=== PATIENT | male | born 1970 | race African-American/Black ===

== ENCOUNTER 2019-09-20 11:28 | Emergency (ER) | payer OTHER ==
[~2019-09-20] VITALS: Ht 182.9 cm; Wt 93.1 kg
[2019-09-20 11:31] VITALS: BP 123/76
[2019-09-20] MEDS ORDERED: HYDROmorphone 2 MG/ML, 1ML IM ONE (12:00)
[2019-09-20] MEDS ORDERED: KETOROLAC 30 MG/1 ML IM ONE (12:00)
[2019-09-20] MEDS ORDERED: LIDOCAINE 1%-EPI 1:100K, 20ML INFIL ONE (12:00)
[2019-09-20] MEDS ORDERED: KETOROLAC 30 MG/1 ML ONE (12:09)
[2019-09-20] MEDS ORDERED: HYDROmorphone 1 MG/ML, 1ML VIAL ONE (12:10)
[2019-09-20] MEDS ORDERED: LIDOCAINE 1%-EPI 1:100K, 20ML ONE (12:33)
--- NOTE | 2019-09-20 13:18 | NUR ---
PT HAS CO OF INGROWN HAIRS IN [place] ARE[place]. I&D SET UP READY. RN ASSIST PA FOR I&D. PT MEDICATED FOR PAIN PRIOR. PT TOLERATED PROCEDURE
--- NOTE | 2019-09-20 13:25 | NUR ---
DPatient/Caregiver given discharge instructions and they have confirmed that they understand the instructions. Patient ambulatory with steady gait.
== END 2019-09-20 13:38 | disposition home or self-care (01) ==
LOC: ED 13:31
DX: L02.31 Cutaneous abscess of buttock (principal)
CPT/HCPCS: 46050; 96372; 99284; J1170; J1885

== ENCOUNTER 2019-09-25 04:25 | Emergency (ER) ==
[~2019-09-25] VITALS: Ht 182.9 cm; Wt 96.3 kg
--- NOTE | 2019-09-25 04:40 | NUR ---
PT REPORTS NECK PAIN THAT HAS GOTTEN WORSE IN THE LAST X3 DAYS, REPORTS PAIN SHOOTS DOWN HIS LEFT ARM IF HE BREATHES DEEPLY OR TURNS HIS HEAD. PT REPORTS BEING UNABLE TO ROTATE HEAD, DENIES TRAUMA.
[2019-09-25] MEDS ORDERED: DIAZEPAM 5 MG TABLET ONE (05:40)
[2019-09-25] MEDS ORDERED: KETOROLAC 30 MG/1 ML ONE (05:40)
--- NOTE | 2019-09-25 05:45 | NUR ---
PT MEDICATED PER MAR. PT TO CT
[2019-09-25] MEDS ORDERED: DIAZEPAM 5 MG TABLET PO ONE (06:00)
[2019-09-25] MEDS ORDERED: KETOROLAC 30 MG/1 ML IM ONE (06:00)
--- NOTE | 2019-09-25 06:35 | NUR ---
PT SLEEPING ON GURNEY WITH RELAXED BODY POSITION. MONITORING IN PLACE. CALL LIGHT WITHIN REACH. PT PROVIDED BLANKET.
--- NOTE | 2019-09-25 06:50 | NUR ---
RECEIVED BEDSIDE REPORT FROM DEREK SIMS. PT RESTING ON GURNEY PRONE POSITION. PT STATES HE'S HAD NECK AND BACK PAIN FOR A WEEK AND GOT WORSE IN THE LAST DAY. VSS. NADN. NO NEEDS REQUESTED AT THIS TIME. PT ALREADY SNORING IN PRONE POSITION.
[2019-09-25 06:51] VITALS: BP 120/89
--- NOTE | 2019-09-25 09:23 | NUR ---
Patient/Caregiver given discharge instructions and they have confirmed that they understand the instructions. Patient ambulatory with steady gait. PT LEFT WITH ALL PESONAL BELONGINGS.
== END 2019-09-25 09:24 | disposition home or self-care (01) ==
LOC: ED 07:13
DX: M54.12 Radiculopathy, cervical region (principal); G24.3 Spasmodic torticollis
CPT/HCPCS: 71046; 72125; 96372; 99284; J1885

== ENCOUNTER 2019-10-21 10:47 | Inpatient (IN) | payer SELFPAY ==
[~2019-10-21] VITALS: Ht 182.9 cm; Wt 91.0 kg
[2019-10-21] MEDS ORDERED: ONDANSETRON 2MG/ML, 2ML IVPush ONE (11:30)
[2019-10-21] MEDS ORDERED: CLINDAMYCIN PMX 900MG/50ML 50 ML IV ONE (11:30)
[2019-10-21] MEDS ORDERED: morphine SULFATE 10 MG/ML, 1ML IVPush ONE (11:30)
[2019-10-21 11:51] LABS: BASOPHILS # (AUTO) 0.03 x10^3/uL (0-0.1); BASOPHILS % (AUTO) 0 % (0-1); EOSINOPHILS # (AUTO) 0.13 x10^3/uL (0-0.4); EOSINOPHILS % (AUTO) 1 % (1-7); LYMPHOCYTES # (AUTO) 1.47 x10^3/uL (1-3.4); LYMPHOCYTES % (AUTO) 13 % (22-44); MD NO; MEAN CORPUSCULAR HEMOGLOBIN 27.3 pg (27.5-34.5); MEAN CORPUSCULAR HGB CONC 32.7 g/dL (33.2-36.2); MEAN CORPUSCULAR VOLUME 83.3 fL (81-97); MEAN PLATELET VOLUME 8.6 fL (7.4-10.4); MONOCYTES # (AUTO) 1.02 x10^3/uL (0.2-0.8); MONOCYTES % (AUTO) 9 % (2-9); NEUTROPHILS # (AUTO) 8.95 x10^3/uL (1.8-6.8); NEUTROPHILS % (AUTO) 77 % (42-75); PLATELET COUNT 241 x10^3/uL (130-400); RED BLOOD COUNT 5.81 x10^6/uL (4.38-5.82); RED CELL DISTRIBUTION WIDTH 14.5 % (9.4-14.8)
[2019-10-21] MEDS ORDERED: ONDANSETRON 2MG/ML, 2ML ONE ×2 (11:57→17:59)
[2019-10-21] MEDS ORDERED: MORPHINE SULFATE 4 MG/ML, 1ML ONE ×2 (11:58→12:48)
[2019-10-21] MEDS ORDERED: CLINDAMYCIN PMX 900MG/50ML 50 ML ONE (11:58)
[2019-10-21 12:00] LABS: ANION GAP 9 mmol/L (5-15); CALCIUM 8.7 mg/dL (8.5-10.1); CHLORIDE 103 mmol/L (98-107); CREATININE 1.16 mg/dL (0.7-1.3)
--- NOTE | 2019-10-21 12:23 | NUR ---
PT TO CT NOW. PT MEDICATED PER ORDER.
[2019-10-21] MEDS ORDERED: OMNIPAQUE 350 MG/ML, 100ML BOTTLE ONE (12:39)
[2019-10-21] MEDS ORDERED: MORPHINE SULFATE 4 MG/ML, 1ML IVPush PRN ×2 (13:00→14:00)
[2019-10-21] MEDS ORDERED: SODIUM CHLORIDE 0.9% 1,000ML IVBOLUS ONE (13:00)
[2019-10-21] MEDS ORDERED: D5%-0.45% NACL 1,000 ML IV ONE (13:42)
[2019-10-21] MEDS ORDERED: ONDANSETRON 2MG/ML, 2ML IVPush PRN (14:00)
[2019-10-21] MEDS ORDERED: BUPIVACAINE/PF 0.5% ONE (15:41)
[2019-10-21] MEDS ORDERED: EPINEPHRINE 1 MG/ML, 1ML ONE (15:41)
[2019-10-21 16:45] VITALS: BP 126/83
[2019-10-21] MEDS ORDERED: FENTANYL PF 250 MCG/5ML ONE (17:24)
[2019-10-21] MEDS ORDERED: MIDAZOLAM 1 MG/ML, 2ML ONE (17:24)
[2019-10-21] MEDS ORDERED: ONDANSETRON 2MG/ML, 2ML IV PRN (17:30)
[2019-10-21] MEDS ORDERED: FENTANYL PF 100 MCG/2ML IV PRN (17:30)
[2019-10-21] MEDS ORDERED: PROMETHAZINE 25 MG/ML, 1ML IV PRN (17:30)
[2019-10-21] MEDS ORDERED: ACETAMINOPHEN 325 MG TABLET PO PRN (17:30)
[2019-10-21] MEDS ORDERED: hydrALAzine 20 MG/ML, 1ML IV PRN (17:30)
[2019-10-21] MEDS ORDERED: OXYcodone 5 MG/5 ML ORAL.SOL UDC PO PRN (17:30)
[2019-10-21] MEDS ORDERED: LABETALOL 5MG/ML, 20ML IV PRN (17:30)
[2019-10-21] MEDS ORDERED: HYDROmorphone 2 MG/ML, 1ML IVPush PRN (17:30)
[2019-10-21] MEDS ORDERED: MEPERIDINE/PF 25MG/ML,1ML IVPush PRN (17:30)
[2019-10-21 17:33] VITALS: BP 126/83
[2019-10-21] MEDS ORDERED: EPHEDRINE 50 MG/ML, 1ML ONE (17:50)
[2019-10-21] MEDS ORDERED: KETOROLAC 30 MG/1 ML ONE (17:54)
[2019-10-21] MEDS ORDERED: PROPOFOL 10 MG/ML, 20ML ONE (17:59)
[2019-10-21] MEDS ORDERED: DEXAMETHASONE 4 MG/ML, 1ML ONE (17:59)
[2019-10-21] MEDS ORDERED: OXYcodone 5 MG/5 ML ORAL.SOL UDC ONE (18:26)
[2019-10-21] MEDS ORDERED: HYDROcodone/APAP 5/325 TABLET PO PRN (19:30)
[2019-10-21] MEDS ORDERED: morphine SULFATE 10 MG/ML, 1ML IV PRN (19:30)
[2019-10-21] MEDS: CIPROFLOXACIN 500 MG TABLET PO SCH (21:14)
[2019-10-21 22:32] VITALS: BP 118/75
[2019-10-22 02:00] VITALS: BP 121/82
[2019-10-22 07:50] VITALS: BP 115/84
[2019-10-22] MEDS: CIPROFLOXACIN 500 MG TABLET PO SCH (09:29)
[2019-10-22] MEDS ORDERED: HYDR-3240 PO (09:59)
[2019-10-22] MEDS ORDERED: CIPR500T87 PO (09:59)
[2019-10-22 13:38] VITALS: BP 126/51
== END 2019-10-22 14:14 | disposition home or self-care (01) | DRG 580 ==
LOC: ED 12:14 → EDIP 13:42 → 4NE 16:43
PROVIDERS: ADMIT Surgery Vascular Surgery; ATTEND Surgery Vascular Surgery
PROC: 0J990ZZ Drainage of Buttock Subcutaneous Tissue and Fascia, Open Approach (ICD-10-PCS; principal; 2019-10-21 18:00)
DX: L02.31 Cutaneous abscess of buttock (principal); L02.215 Cutaneous abscess of perineum; K61.1 Rectal abscess; K62.89 Other specified diseases of anus and rectum; F17.200 Nicotine dependence, unspecified, uncomplicated
CPT/HCPCS: 36415; 87806; 96361; 96374; 96375; 99285; S0020; 72193; 80048; 85025; G0378; J0171; J1100; J1885; J2250; J2405; J2704; J3010; Q9967; G0475; J2270; J7030